=== PATIENT | female | born 1950 | race Caucasian/White ===

== ENCOUNTER 2021-12-25 08:57 | Outpatient (AMB) | payer OTHER, SELFPAY ==
[2021-12-25 09:12] VITALS: BP 100/62; PULSE 69; RESP 18; TEMP 36.3; BMI 27.3
--- NOTE | 2021-12-25 09:12 | URONOTE_ITS ---
Intake Vital Signs 12/25/21 09:12 Height 1.57 m Height Method Stated Weight 67.755 kg Weight Measurement Method Standing Scale BMI 27.3 Temp 97.4 F Temp Source Temporal Artery Scan Pulse 69 Pulse Source Monitor Respiration 18 BP 100/62 Blood Pressure Source Automatic Cuff Blood Pressure Location Left Upper Arm Position Sitting Intake Visit Reasons: Uro Bladder Instillation Allergy Allergies No Known Allergies Allergy (Verified 12/25/21 09:13) Home Meds Medication Reconciliation ibuprofen 400 mg tablet 400 mg PO TID PRN 05/13/19 [History Confirmed 12/25/21] pentosan polysulfate sodium 100 mg capsule (Elmiron) 100 mg PO TID 08/02/19 [History Confirmed 12/25/21] Current Vital Signs Height Height Method Weight Weight Measurement Method Body Mass Index Temperature Temperature Source 1.57 m Stated 67.755 kg Standing Scale 27.3 97.4 F Temporal Artery Scan 12/25/21 09:12 12/25/21 09:12 12/25/21 09:12 12/25/21 09:12 12/25/21 09:12 12/25/21 09:12 12/25/21 09:12 Pulse Rate Pulse Source Respiratory Rate Blood Pressure Blood Pressure Source Blood Pressure Location Blood Pressure Position 69 Monitor 18 100/62 Automatic Cuff Left Upper Arm Sitting 12/25/21 09:12 12/25/21 09:12 12/25/21 09:12 12/25/21 09:12 12/25/21 09:12 12/25/21 09:12 12/25/21 09:12 Nursing Documentation Social History Living Situation History Housing: MOBILE HOME Tobacco History Smoking Status: Current some day smoker Alcohol History Alcohol Intake: Current Office Procedures Uro Bladder Instillation My Supervising Practitioner for this visit is:: Joey Esquivel Bladder Instillation Completed?: Yes Installation number: other Pain after last installation: none Catheter: [address] void residual: noted Office Meds triamcinolone acetonide Performing Provider: Joey Esquivel MD Administered by: Dayan Redd RN on 12/25/21 09:47 Dose Route Admin Location Lot Number Expiration Date [place] Ticker Maintainer 40 mg Infiltration gentamicin Performing Provider: Joey Esquivel MD Administered by: Dayan Redd RN on 12/25/21 09:47 Dose Route Admin Location Lot Number Expiration Date NDC Ticker Maintainer 80 mg IM sodium bicarbonate Performing Provider: Joey Esquivel MD Administered by: Dayan Redd RN on 12/25/21 09:47 Dose Route Admin Location Lot Number Expiration Date [facility] Ticker Maintainer 5 mEq IV Xylocaine Performing Provider: Joey Esquivel MD Administered by: Dayan Redd RN on 12/25/21 09:47 Dose Route Admin Location Lot Number Expiration Date [facility] Ticker Maintainer 200 mg intravesical heparin (porcine) Performing Provider: Joey Esquivel MD Administered by: Dayan Redd RN on 12/25/21 09:47 Dose Route Admin Location Lot Number Expiration Date [facility] Ticker Maintainer 10,000 unit intravesical [facility] Office Visit Office Visit Date of visit:: December 25, 2021 08:57 Allergies & Home Medications: Allergies No Known Allergies Allergy (Verified 11/20/21 09:51) Visit: Reason for visit: [] Office Visit findings: []
--- NOTE | 2021-12-26 06:38 | URONOTEN_ITS ---
RE: OCTAVIO PARHAM : 1950 DATE: 12/25/2021 CHIEF COMPLAINT: 1. Severe interstitial cystitis. 2. Bladder instillation of cocktail of lidocaine, heparin, bicarbonate, gentamicin, and Kenalog HISTORY OF PRESENT ILLNESS: This is a 71-year-old female. She has severe interstitial cystitis. She is on bladder instillation of cocktail of above medications. The patient has done very well. She was getting instillation every week, then every 2 weeks, now every 1 month under sterile condition. I inserted a catheter. Through the catheter, I instilled cocktail of above medications. Post-instillation instructions are given to patient. Followup appointment in Urology office in 1 month is given. Her vital signs are stable. Urine is negative for any infection. DT: 12:16:39 TT: 12:49:00 Ref: [id number] - TID: [id number]
== END 2021-12-25 10:22 | disposition home or self-care (01) ==
LOC: HODURO 08:57
PROVIDERS: Visit Provider Urology

== ENCOUNTER → 2024-11-01 | Outpatient (BNVA) | payer MEDICARE, MEDICAID, SELFPAY | END | disposition home or self-care (01) | PROVIDERS: PCP Family Medicine; Referring Provider Family Medicine; Visit Provider Urology | DX: N30.10 Interstitial cystitis (chronic) without hematuria (principal); F17.210 Nicotine dependence, cigarettes, uncomplicated | CPT/HCPCS: 51700; 81003; A4217; A4649; C1894; J1644; J3260; J3301; J3490 ==

== ENCOUNTER → 2024-12-03 | Outpatient (BNVA) | payer MEDICARE, MEDICAID, SELFPAY | END | disposition home or self-care (01) | PROVIDERS: PCP Family Medicine; Referring Provider Family Medicine; Visit Provider Urology | DX: N30.10 Interstitial cystitis (chronic) without hematuria (principal); F17.210 Nicotine dependence, cigarettes, uncomplicated | CPT/HCPCS: 51700; A4217; A4649; C1894; J1644; J3260; J3301; J3490 ==

== ENCOUNTER → 2024-12-10 | Outpatient (CLI) | payer OTHER, SELFPAY ==
[2024-12-10 12:58] LABS: Alanine Aminotransferase 14 U/L (10-49); Albumin, Serum 4.7 gm/dL (3.4-4.8); Albumin/Globulin Ratio 2.5 (1.2-2.2); Alkaline Phosphatase 83 U/L (46-116); Anion Gap 8 (7-16); Aspartate Amino Transferase 19 U/L (0-34); BUN/Creatinine Ratio 19 Ratio (12-20); Bilirubin,Total 0.7 mg/dL (0.3-1.2); Blood Urea Nitrogen 15 mg/dL (9-23); Calcium 9.9 mg/dL (8.3-10.6); Calcium (Corrected) 9.9 mg/dL (8.5-10.1); Carbon Dioxide 29.5 mMol/L (20.0-31.0); Chloride 103 mMol/L (98-107); Creatinine (Component) 0.8 mg/dL (0.6-1.3); Globulin 1.9 gm/dL (2.3-3.5); Glucose 102 mg/dL (74-106); Osmolality,Calculated 280 (275-295); Potassium 4.5 mMol/L (3.4-5.1); Sodium 140 mMol/L (136-145); Total Protein 6.6 gm/dL (5.7-8.2); eGFR > 60 See Note
== END | disposition home or self-care (01) ==
PROVIDERS: PCP Family Medicine; Referring Provider Orthopaedic Surgery; Visit Provider Orthopaedic Surgery
DX: Z01.89 Encounter for other specified special examinations (principal); Z79.1 Long term (current) use of non-steroidal anti-inflammatories (NSAID)
CPT/HCPCS: 36415; 80053

== ENCOUNTER → 2024-12-20 | Outpatient (BNVA) | payer MEDICARE, MEDICAID, SELFPAY | END | disposition home or self-care (01) | PROVIDERS: PCP Family Medicine; Referring Provider Family Medicine; Visit Provider Urology | DX: N30.10 Interstitial cystitis (chronic) without hematuria (principal); F17.210 Nicotine dependence, cigarettes, uncomplicated | CPT/HCPCS: 51700; 81003; A4217; A4649; C1894; J1580; J1644; J3301; J3490 ==

== ENCOUNTER → 2025-01-10 | Outpatient (BNVA) | payer MEDICARE, MEDICAID, SELFPAY | END | disposition home or self-care (01) | PROVIDERS: PCP Family Medicine; Referring Provider Family Medicine; Visit Provider Urology | DX: N30.10 Interstitial cystitis (chronic) without hematuria (principal); F17.210 Nicotine dependence, cigarettes, uncomplicated | CPT/HCPCS: 51700; 81003; A4217; A4649; C1894; J1580; J1644; J3301; J3490 ==

== ENCOUNTER → 2025-02-07 | Outpatient (BNVA) | payer MEDICARE, MEDICAID, SELFPAY | END | disposition home or self-care (01) | PROVIDERS: PCP Family Medicine; Referring Provider Family Medicine; Visit Provider Urology | DX: N30.10 Interstitial cystitis (chronic) without hematuria (principal) | CPT/HCPCS: 51700; 81003; A4217; A4649; C1894; J1580; J1644; J3301; J3490 ==

== ENCOUNTER → 2025-03-08 | Outpatient (BNVA) | payer MEDICARE, MEDICAID, SELFPAY | END | disposition home or self-care (01) | PROVIDERS: PCP Family Medicine; Referring Provider Family Medicine; Visit Provider Urology | DX: N30.10 Interstitial cystitis (chronic) without hematuria (principal); F17.210 Nicotine dependence, cigarettes, uncomplicated | CPT/HCPCS: 51700; 81003; A4217; A4649; C1894; J1580; J1644; J3301; J3490 ==

== ENCOUNTER → 2025-04-05 | Outpatient (BNVA) | payer MEDICARE, MEDICAID, SELFPAY | END | disposition home or self-care (01) | PROVIDERS: PCP Family Medicine; Referring Provider Family Medicine; Visit Provider Urology | DX: N30.10 Interstitial cystitis (chronic) without hematuria (principal); F17.210 Nicotine dependence, cigarettes, uncomplicated | CPT/HCPCS: 51700; 81003; A4217; A4649; C1894; J1580; J1644; J3301; J3490 ==

== ENCOUNTER → 2025-04-20 | Outpatient (CLI) | payer MEDICARE, MEDICAID, SELFPAY ==
--- NOTE | 2025-04-20 11:30 | XR_ITS ---
Examination: Screening digital mammography, bilateral Computer aided detection 3-D breast Tomosynthesis, bilateral Date and time of exam: April 20, 2025 1115 hours Compared to mammograms dating to September 01, 2017 Indication: Screening Technique: Nonmagnified MLO, CC views of the breasts to been obtained, reconstructed from 3-D Tomosynthesis images. R2 computer aided detection program utilized for evaluation of suspicious masses and/or abnormal calcifications. 3-D Tomosynthesis images obtained. Findings: Scattered areas of fibroglandular density. Benign calcifications. No interval suspicious masses Impression: BI-RADS category II: Benign Findings. Recommend 1 year follow-up mammogram.
== END | disposition home or self-care (01) ==
LOC: CDIM 10:58
DX: Z12.31 Encounter for screening mammogram for malignant neoplasm of breast (principal); R92.323 Mammographic fibroglandular density, bilateral breasts; R92.1 Mammographic calcification found on diagnostic imaging of breast
CPT/HCPCS: 77063; 77067

== ENCOUNTER → 2025-05-03 | Outpatient (BNVA) | payer MEDICARE, MEDICAID, SELFPAY | END | disposition home or self-care (01) | PROVIDERS: PCP Family Medicine; Referring Provider Family Medicine; Visit Provider Urology | DX: N30.10 Interstitial cystitis (chronic) without hematuria (principal); F17.210 Nicotine dependence, cigarettes, uncomplicated | CPT/HCPCS: 51700; 81003; A4217; A4649; C1894; J1580; J1644; J3301; J3490 ==

== ENCOUNTER → 2025-05-16 | Outpatient (CLI) | payer OTHER, SELFPAY ==
[2025-05-16 10:37] LABS: Alanine Aminotransferase 12 U/L (10-49); Albumin, Serum 4.7 gm/dL (3.4-4.8); Albumin/Globulin Ratio 2.6 (1.2-2.2); Alkaline Phosphatase 78 U/L (46-116); Anion Gap 8 (7-16); Aspartate Amino Transferase 21 U/L (0-34); BUN/Creatinine Ratio 20 Ratio (12-20); Bilirubin,Total 0.6 mg/dL (0.3-1.2); Blood Urea Nitrogen 14 mg/dL (9-23); Carbon Dioxide 26.2 mMol/L (20.0-31.0); Chloride 105 mMol/L (98-107); Creatinine (Component) 0.7 mg/dL (0.6-1.3); Globulin 1.8 gm/dL (2.3-3.5); Glucose 93 mg/dL (74-106); Osmolality,Calculated 278 (275-295); Potassium 4.2 mMol/L (3.4-5.1); Sodium 139 mMol/L (136-145); Total Protein 6.5 gm/dL (5.7-8.2); eGFR > 60 See Note
== END | disposition home or self-care (01) ==
PROVIDERS: PCP Family Medicine; Referring Provider Orthopaedic Surgery; Visit Provider Orthopaedic Surgery
DX: Z01.89 Encounter for other specified special examinations (principal); Z79.1 Long term (current) use of non-steroidal anti-inflammatories (NSAID)
CPT/HCPCS: 36415; 80053

== ENCOUNTER → 2025-05-31 | Outpatient (BNVA) | payer MEDICARE, MEDICAID, SELFPAY | END | disposition home or self-care (01) | PROVIDERS: PCP Family Medicine; Referring Provider Family Medicine; Visit Provider Urology | DX: N30.10 Interstitial cystitis (chronic) without hematuria (principal); F17.210 Nicotine dependence, cigarettes, uncomplicated | CPT/HCPCS: 51700; 96372; A4217; A4649; C1894; J1580; J1644; J3301; J3490 ==

== ENCOUNTER → 2025-06-28 | Outpatient (BNVA) | payer MEDICARE, MEDICAID, SELFPAY | END | disposition home or self-care (01) | PROVIDERS: PCP Family Medicine; Referring Provider Family Medicine; Visit Provider Urology | DX: N30.10 Interstitial cystitis (chronic) without hematuria (principal); F17.210 Nicotine dependence, cigarettes, uncomplicated; Z71.6 Tobacco abuse counseling | CPT/HCPCS: 51700; 81003; 99213; A4217; A4649; C1894; J1580; J1644; J3301; J3490; G0463 ==

== ENCOUNTER → 2025-08-02 | Outpatient (CLI) | payer MEDICARE, MEDICAID, SELFPAY ==
--- NOTE | 2025-08-02 14:00 | XR_ITS ---
Examination: Bone densitometry Date and time of exam:August 02, 2025 0208 hours INDICATIONS: Menopause age 52 vitamin D and calcium 2 years, personal history osteopenia Technique: Lumbar spine and hip total bone mineralization values of an calculated. Peak reference and age match control results have been displayed. Findings: Lumbar spine total bone mineralization is1.063 gm/cm2. This is 0.1 standard deviations above peak reference. This is 2.5 standard deviations above age-matched controls. Hip total bone mineralization is 0.702 gm/cm2 This is 2.0 standard deviations below peak reference. This is 0.3 standard deviations below age-matched controls Impression: There is normal mineralization based on lumbar spine measurements. There is osteoporosis based on hip measurements Lumbar mineralization is increase 0.6% compared with May 27, 2023 Hip mineralization is decreased 1.5% compared with May 27, 2023
== END | disposition home or self-care (01) ==
LOC: CDIM 13:39
PROVIDERS: Referring Provider Family Medicine; Visit Provider Family Medicine
DX: M85.80 Other specified disorders of bone density and structure, unspecified site (principal)
CPT/HCPCS: 77080

== ENCOUNTER → 2025-08-02 | Outpatient (BNVA) | payer MEDICARE, MEDICAID, SELFPAY | END | disposition home or self-care (01) | PROVIDERS: PCP Family Medicine; Referring Provider Family Medicine; Visit Provider Urology | DX: N30.10 Interstitial cystitis (chronic) without hematuria (principal); F17.210 Nicotine dependence, cigarettes, uncomplicated | CPT/HCPCS: 51700; 81003; 99213; A4217; A4649; C1894; J1580; J1644; J3301; J3490; G0463 ==

== ENCOUNTER → 2025-09-05 | Outpatient (BNVA) | payer MEDICARE, MEDICAID, SELFPAY | END | disposition home or self-care (01) | PROVIDERS: PCP Family Medicine; Referring Provider Family Medicine; Visit Provider Urology | DX: N30.10 Interstitial cystitis (chronic) without hematuria (principal); F17.210 Nicotine dependence, cigarettes, uncomplicated; Z71.6 Tobacco abuse counseling | CPT/HCPCS: 51700; 81003; A4217; A4649; C1894; J1580; J1644; J3301; J3490 ==

== ENCOUNTER → 2025-10-03 | Outpatient (BNVA) | payer MEDICARE, MEDICAID, SELFPAY | END | disposition home or self-care (01) | PROVIDERS: PCP Family Medicine; Referring Provider Family Medicine; Visit Provider Urology | DX: N30.10 Interstitial cystitis (chronic) without hematuria (principal); F17.210 Nicotine dependence, cigarettes, uncomplicated; Z71.6 Tobacco abuse counseling | CPT/HCPCS: 51700; 81003; 99212; A4217; A4649; C1894; J1010; J1580; J1644; J3490; G0463 ==

== ENCOUNTER → 2025-10-24 | Outpatient (BNVA) | payer MEDICARE, MEDICAID, SELFPAY | END | disposition home or self-care (01) | PROVIDERS: PCP Family Medicine; Referring Provider Family Medicine; Visit Provider Urology | DX: N30.10 Interstitial cystitis (chronic) without hematuria (principal); F17.210 Nicotine dependence, cigarettes, uncomplicated | CPT/HCPCS: 51700; 81003; A4217; A4649; C1894; J1010; J1580; J1644; J3490 ==